=== PATIENT | female | born 1950 ===

== ENCOUNTER → 2024-07-01 | Outpatient (CLI) | payer MEDICARE, OTHER | END | disposition home or self-care (01) | LOC: SHCH 13:32 | PROVIDERS: ATTEND Internal Medicine Cardiovascular Disease | DX: I35.0 Nonrheumatic aortic (valve) stenosis (principal) | CPT/HCPCS: 93306 ==

== ENCOUNTER 2024-07-13 16:40 | Emergency (ER) | payer MEDICARE ==
[~2024-07-13] VITALS: Ht 172.7 cm; Wt 65.8 kg
[2024-07-13 16:52] VITALS: BP 132/65; PULSE 58; RESP 16; TEMP 98.4; O2SAT 98
[2024-07-13] MEDS ORDERED: DICL20GE TP (17:07)
== END 2024-07-13 17:13 | disposition home or self-care (01) ==
LOC: EDH 16:40
DX: S86.811A Strain of other muscle(s) and tendon(s) at lower leg level, right leg, initial encounter (principal); E11.9 Type 2 diabetes mellitus without complications; Z98.890 Other specified postprocedural states; X58.XXXA Exposure to other specified factors, initial encounter; Y93.01 Activity, walking, marching and hiking; Y92.89 Other specified places as the place of occurrence of the external cause; Y99.8 Other external cause status